=== PATIENT | female | born 1985 | race Caucasian/White ===

== ENCOUNTER 2016-08-13 13:42 | Emergency (ER) | payer MEDICAID ==
[~2016-08-13] VITALS: Ht 177.8 cm; Wt 59.0 kg
[2016-08-13 14:00] VITALS: BP 117/75; PULSE 96; RESP 18; TEMP 98; O2SAT 98
--- NOTE | 2016-08-13 14:00 | NUR ---
BROUGHT BACK TO BED #8 AND TRIAGED. REPORT GIVEN TO SUSAN Addendum: 08/13/16 at 1521 by [email or web address] Amendment undone in EDM - 08/13/16 at 1531 by [email or web address] Assessed patient at 1415
--- NOTE | 2016-08-13 14:20 | NUR ---
ER at bedside examining patient.
[2016-08-13] MEDS ORDERED: ACETAMINOPHEN 325 MG TABLET PO ONE (14:30)
[2016-08-13 14:42] LABS: BASOPHILS % (AUTO) 0.7 % (0.0-2.0); EOSINOPHILS # (AUTO) 0.1 K/uL (0.0-0.4); EOSINOPHILS % (AUTO) 3.2 % (0.0-4.0); HEMATOCRIT 34.1 % (36-48); HEMOGLOBIN 11.2 g/dL (12.0-16.0); LYMPHOCYTES % (AUTO) 42.6 % (20.5-51.5); MEAN CORPUSCULAR HEMOGLOBIN 25 pg (27-31); MEAN CORPUSCULAR HGB CONC 33 % (32-36); MEAN CORPUSCULAR VOLUME 77 fL (79.0-98.0); MONOCYTES # (AUTO) 0.4 K/uL (0.0-1.0); MONOCYTES % (AUTO) 8.6 % (1.7-9.3); NEUTROPHILS # (AUTO) 2.1 K/uL (1.8-7.7); NEUTROPHILS % (AUTO) 44.9 % (40.0-70.0); PLATELET COUNT (AUTO) 394 K/uL (130-430); RED BLOOD CELL COUNT(AUTO) 4.45 MIL/uL (4.2-6.2); RED CELL DISTRIBUTION WIDTH 16.5 % (9.0-15.0); WHITE BLOOD COUNT (AUTO) 4.6 K/uL (4.8-10.8)
[2016-08-13 14:48] LABS: CALCIUM 8.8 mg/dL (8.4-11.0); CREATININE 0.87 mg/dL (0.55-1.30); POTASSIUM 4.2 mmol/L (3.5-5.1)
--- NOTE | 2016-08-13 14:53 | NUR ---
Patient is stable. Patient states that she has pain in left side of the chest and left lower abdomen x 3 days. Patient states that she has numbness in her feet, sensation present and pedal pulse present, her heart is racing and feels dizzy at times. States that her last bowel movement was 1 week ago, denies no nausea and vomitting. No other complaint or injures per patient or noted. Addendum: 08/13/16 at 1531 by [email or web address] Assessed patient at 1415
[2016-08-13 14:54] LABS: ALBUMIN 3.6 g/dL (3.4-4.8); TOTAL BILIRUBIN 0.4 mg/dL (0.0-1.0); TOTAL PROTEIN, SERUM 7.3 g/dL (6.4-8.3)
[2016-08-13 15:05] LABS: PROTHROMBIN TIME 10.9 SECS (9.5-12.5)
[2016-08-13 15:37] LABS: BILIRUBIN,URINE NEGATIVE (NEGATIVE); BLOOD, URINE 3+ (NEGATIVE); CLARITY/URINE SL HAZY (CLEAR); COLOR,URINE YELLOW (YELLOW); GLUCOSE,URINE NEGATIVE (NEGATIVE); KETONES,URINE NEGATIVE (NEGATIVE); LEUKOCYTE ESTERASE ,URINE NEGATIVE (NEGATIVE); NITRITE, URINE NEGATIVE (NEGATIVE); PROTEIN URINE NEGATIVE (NEGATIVE); UROBILINOGEN,URINE 0.2 (0.2-1.0)
[2016-08-13 15:55] LABS: BACTERIA,URINE FEW /HPF (None Seen)
[2016-08-13 15:56] LABS: MUCUS,URINE 2+ /LPF (None Seen)
[2016-08-13 16:10] VITALS: BP 134/83; PULSE 87; RESP 17; TEMP 98; O2SAT 97
--- NOTE | 2016-08-13 16:10 | NUR ---
Patient given written and verbal discharge instructions and verbalizes understanding. ER MD discussed with patient the results and treatment provided. Patient in stable condition. ID arm band removed. Rx of Cipro and Miralax given. Patient educated on pain management and to follow up with PMD. Pain Scale 0/10. Opportunity for questions provided and answered.
== END 2016-08-13 16:10 | disposition home or self-care (01) ==
LOC: SED 13:42
DX: N39.0 Urinary tract infection, site not specified (principal); K59.00 Constipation, unspecified
CPT/HCPCS: 36415; 71020-TC; 80053; 81000-TC; 81025; 83690-TC; 84484; 85025; 85610-TC; 85730-TC; 93005; 99285